=== PATIENT | male | born 1960 | race Caucasian/White ===

== ENCOUNTER 2024-05-24 08:48 | Day surgery (SDC) | payer BC ==
[2024-05-20 15:17] VITALS: BMI 36.2
[2024-05-24 09:43] VITALS: RESP 18; TEMP 98.6
[2024-05-24 10:07] VITALS: BP 126/80; PULSE 76
== END 2024-05-24 10:07 | disposition home or self-care (01) ==
LOC: FASU-ENDO 08:48
PROVIDERS: ATTEND Internal Medicine Gastroenterology
PROC: 0DJD8ZZ Inspection of Lower Intestinal Tract, Via Natural or Artificial Opening Endoscopic (ICD-10-PCS; principal; 2024-05-24 09:19)
DX: Z12.11 Encounter for screening for malignant neoplasm of colon (principal); K64.1 Second degree hemorrhoids
CPT/HCPCS: 82962